=== PATIENT | male | born 1970 | race Caucasian/White ===

== ENCOUNTER 2019-03-31 07:32 | Outpatient (CLI) | payer BC, SELFPAY ==
--- NOTE | ~2019-03-31 | US_ITS ---
EXAMINATION: US abdomen complete EXAM DATE: 03/31/2019 08:47 INDICATION: Right lower quadrant pain. Bulging in right lower quadrant. TECHNIQUE: Multiple grayscale and Doppler images of the complete abdomen were obtained (by a technolo gist who performed the scan) and subsequently reviewed. There is no prior study for comparison. FINDINGS: The abdominal aorta is normal in caliber. Visualized portion IVC is patent. The pancreatic head a nd body are normal in appearance. The pancreatic tail is not visualized. The liver has normal echogenicity and contour. There are no focal liver lesions identified. There is no evidence of intrahepatic biliary duct dilation. Portal venous flow was seen in the hepatopedal , normal direction and has normal Doppler waveform. Common bile duct measures 4 mm, which is normal. The gallbladder wall is normal in thickness, with ex pected amount of distention. No sonographic evidence of pericholecystic fluid. There is no cholelit hiases. Technologist performing exam reports patient did not demonstrate sonographic Chavira's sign. Please note that this sign is less reliable in patients who have received pain medication. Right kidney: There is normal contour and echogenicity. It measures 10.9 x 6.1 x 5.8 centimeters. T here are 2 focal anechoic regions consistent with cysts within this cyst measuring up to 5 cm. Ther e is no hydronephrosis. Left kidney: There is normal contour and echogenicity. It measures 10.9 x 6.3 x 7.2 centimeters. Th ere is a cyst within this measuring up to 2 cm. There is no hydronephrosis. The spleen measures 13.7 centimeters which is upper limits of normal in size. IMPRESSION: 1. Renal cysts. Reviewed, dictated and finalized at location B. UNTANT ASSISTANT IMPRESSION: 1. Renal cysts.
--- NOTE | ~2019-03-31 | US_ITS ---
EXAMINATION: US scrotum doppler DATE: 03/31/2019 08:48 INDICATION: Right lower quadrant pain and hernia. TECHNIQUE: Testicular sonogram utilizing grayscale and Doppler COMPARISON: None. FINDINGS: The right testis measures 4.6 x 2.7 x 3.4 cm. The left testis measures 2.5 x 2.6 x 3.3 cm. Symmetric normal grayscale appearance to both testes. There is normal vascular flow to both testes. The right e pididymis is normal with normal vascular flow. The left epididymis is normal with normal vascular yosef w. There is no varicocele or hydrocele. Fat-containing right inguinal hernia. There is a 2.2 x 0.8 x 10.0 cm ovoid likely lymph node suggestion of a central fatty hilum within the herniated fat. IMPRESSION: 1. 2.2 x 0.8 x 10.0 cm likely lymph node within a fat-containing right inguinal hernia. Otherwise no rmal scrotal ultrasound. Reviewed, dictated and finalized at location A. ENT PLANT TREATER IMPRESSION: 1. 2.2 x 0.8 x 10.0 cm likely lymph node within a fat-containing right inguina l hernia. Otherwise normal scrotal ultrasound.
[2019-03-31 08:16] LABS: Eosinophils Absolute Auto 0.2 K/mm3 (0-0.3); Eosinophils Percent Auto 5.9 % (0-4.4); Hematocrit 43.2 % (42.0-52.0); Hemoglobin 14.6 g/dL (14.0-18.0); Immature Granulocyte Absolute 0.01 K/mm3 (0.00-0.031); Immature Granulocyte Percent A 0.2 % (0-0.5); Lymphocytes Absolute Auto 1.72 K/mm3 (0.9-3.2); Lymphocytes Percent Auto 42.6 % (18.3-44.2); Mean Corpuscular HGB Conc 33.8 g/dl (32-36); Mean Corpuscular Hemoglobin 28.9 pg (26-34); Mean Corpuscular Volume 85.4 fl (80-100); Mean Platelet Volume 10.6 fl (7.4-10.4); Monocytes Absolute Auto 0.5 K/mm3 (0.1-0.6); Monocytes Percent Auto 13.1 % (2.6-8.5); Neutrophils Absolute Auto 1.5 K/mm3 (1.3-6.7); Neutrophils Percent Auto 37.2 % (45.5-73.1); Platelet Count Result 178 k/mm3 (150-375); Red Blood Count 5.06 M/mm3 (4.6-6.20); Red Cell Distribution Width 12.9 % (11.5-14.5)
[2019-03-31 08:37] LABS: Alanine Aminotransferase 35 U/L (4-50); Albumin Level 4.6 g/dL (3.5-5.1); Alkaline Phosphatase 48 U/L (38-126); Aspartate Amino Transferase 33 U/L (17-59); Bilirubin,Total 0.4 mg/dL (0.2-1.3); Blood Urea Nitrogen 14 mg/dL (9-20); Calcium 9.5 mg/dL (8.4-10.2); Carbon Dioxide 25 mmol/L (22-30); Chloride 102 mmol/L (98-107); Cholesterol 227 mg/dL (0-200); Estimated Glomerular Filt Rate > 60; Glucose 95 mg/dL (75-110); HDL Direct 71 mg/dL; Potassium 4.3 mmol/L (3.4-5.0); Sodium 142 mmol/L (137-145); Triglycerides 147 mg/dL (<150)
[2019-03-31 08:55] LABS: LDL Cholesterol Direct 117 mg/dL
[2019-03-31 09:16] LABS: Prostate Specific Antigen 0.9 ng/mL (< OR = 4.0)
== END 2019-03-31 07:33 | disposition home or self-care (01) ==
PROVIDERS: PCP Internal Medicine; Visit Provider Nurse Practitioner
DX: K40.90 Unilateral inguinal hernia, without obstruction or gangrene, not specified as recurrent (principal); Z13.228 Encounter for screening for other metabolic disorders; Z12.5 Encounter for screening for malignant neoplasm of prostate; Z13.220 Encounter for screening for lipoid disorders; N28.1 Cyst of kidney, acquired
CPT/HCPCS: 36415; 76700; 76870; 80053; 80061; 84153; 85025; 93976

== ENCOUNTER 2019-04-06 01:14 | Day surgery (SDC) | payer BC, SELFPAY ==
[2019-04-03 15:31] VITALS: BMI 27.8
[2019-04-06] MEDS: LACTATED RINGERS 1,000 ML 150 ML IV CONT (10:56)
--- NOTE | 2019-04-06 11:04 | P.HP_ITS ---
History of Present Illness History of Present Illness Consent: Risks, benefits, and alternatives have been discussed and questions answered. Patient agrees to proceed with procedure. Chief complaint: Neoplasm Screening Narrative: Nikolas Pepe is a 48 year old W male referred for his 1st screening colonoscopy. Patient is asymptomatic and there is no family history of colon polyps or colon cancer. [facility] Social History Social History (Reviewed 04/05/19 @ 08:38 by Briana Schulte [facility]) Smoking status: Never smoker Alcohol intake: current Substance use: never Additional occupation/education comments: [place] Gender identity (if verbalized by the patient): Male Meds Home Medications and Allergies Home Medications Medication Instructions Recorded Confirmed Type fexofenadine 60 mg-pseudoephedrine 1 tablet PO Q12H PRN 03/22/19 04/03/19 History ER 120 mg tablet,ext.release,12 hr Allergies Allergy/AdvReac Type Severity Reaction Status Date / Time No Known Allergies Allergy Verified 04/05/19 08:37 Exam Const: Orientation/consciousness: patient oriented x3 Resp: Auscultation: clear to auscultation bilaterally Cardio: Rate: regular rate Rhythm: regular rhythm Heart sounds: no murmurs GI: GI Palp: Yes Soft to palpation, No Tenderness to palpation present (GI), Yes No hepatosplenomegaly present and No Palpable mass present Auscultation: normal bowel sounds Neuro: General: patient oriented x3 and no focal motor deficits Extrem: General: no pedal edema
[2019-04-06 11:12] VITALS: BP 113/80; PULSE 76; RESP 16; TEMP 36.2; O2SAT 100
--- NOTE | 2019-04-06 11:25 | WPDANESEPPF ---
Anes - Initial Pre Proc Eval Procedure: Operation Date: 04/06/19 11:30 Proposed Procedures p Screening Colonoscopy - Dk Romero MD Date/Time: 04/06/19 11:25 Surgeon: Dk Romero MD Pre Op Diagnosis: Neoplasm Screening Patient Data Age: 48 Gender: M Height: 5 ft 10 in Weight: 87.4 kg Last Vital Signs Temp 97.2 F L 04/06/19 11:12 Pulse 76 04/06/19 11:12 Resp 16 04/06/19 11:12 BP 113/80 04/06/19 11:12 Pulse Ox 100 04/06/19 11:12 Allergies Allergy/AdvReac Type Severity Reaction Status Date / Time No Known Allergies Allergy Verified 04/06/19 11:11 Home Medications Medication Instructions Recorded Confirmed Type fexofenadine 60 mg-pseudoephedrine 1 tablet PO Q12H PRN 03/22/19 04/03/19 History ER 120 mg tablet,ext.release,12 hr Patient hx anesthesia problems: none Family hx anesthesia problems: none [facility] Social History Social History Smoking status: Never smoker Alcohol intake: current Substance use: never Additional occupation/education comments: [employer] Gender identity (if verbalized by the patient): Male Anes - Eval Final PreProcedure Day of Procedure 04/06/19 11:25 Patient weight: normal Heart: regular rate and rhythm Lungs: clear to auscultation Airway: Mallampati scale class II Neurological: alert and oriented Last oral intake: >/= 8 hours ASA classification: II Emergent: no Anesthetic plan: proceed Anesthesia type and monitoring: general GIVS and standard monitoring Informed Consent: The patient's anesthetic plan and its attendant risks and benefits were discussed with the patient/family/POA. Questions were solicited and answers provided to the satisfaction of the patient/family/POA.
[2019-04-06 12:33] VITALS: BP 98/68; PULSE 66; RESP 20; O2SAT 99
[2019-04-06 12:43] VITALS: BP 119/74; PULSE 63; RESP 20; O2SAT 98
[2019-04-06 12:53] VITALS: BP 104/79; PULSE 66; RESP 21; O2SAT 100
[2019-04-06 13:03] VITALS: BP 116/89; PULSE 63; RESP 19; O2SAT 100
== END 2019-04-06 13:13 | disposition home or self-care (01) ==
PROVIDERS: PCP Internal Medicine; Visit Provider Internal Medicine Gastroenterology
PROC: 0DJD8ZZ Inspection of Lower Intestinal Tract, Via Natural or Artificial Opening Endoscopic (ICD-10-PCS; CPT 45378; principal; 2019-04-06 11:30)
DX: Z12.11 Encounter for screening for malignant neoplasm of colon (principal); D12.4 Benign neoplasm of descending colon; D12.5 Benign neoplasm of sigmoid colon; K62.1 Rectal polyp; K64.8 Other hemorrhoids; K64.4 Residual hemorrhoidal skin tags
CPT/HCPCS: 45385; 45380; 88305; J2001; J2704; J7120

== ENCOUNTER 2019-05-03 00:51 | Day surgery (SDC) | payer BC, SELFPAY ==
[2019-04-17 12:00] VITALS: BMI 29.0
[2019-05-03] VITALS (7 sets, daily range): BP systolic 116–142; BP diastolic 73–87; PULSE 56–64; RESP 12–16; TEMP 36.7; O2SAT 97–100
[2019-05-03] MEDS: LACTATED RINGERS 1,000 ML 30 ML IV CONT ×3 (10:55→15:06)
--- NOTE | 2019-05-03 10:59 | WPDANESEPPF ---
Anes - Initial Pre Proc Eval Procedure: Operation Date: 05/03/19 12:00 Proposed Procedures p Laparoscopic Right Inguinal Hernia Repair, With Mesh - Jacobo Zepeda MD s Excision Skin Lesion Right Side Shaft of Penis - Jacobo Zepeda MD Date/Time: 05/03/19 10:59 Surgeon: Jacobo Zepeda MD Pre Op Diagnosis: RT Inguinal Hernia, Skin Lesion RT shaft of Penis Patient Data Age: 48 Gender: M Height: 5 ft 9 in Weight: 89 kg Allergies Allergy/AdvReac Type Severity Reaction Status Date / Time No Known Allergies Allergy Verified 04/17/19 14:38 Home Medications Medication Instructions Recorded Confirmed Type fexofenadine 60 mg-pseudoephedrine 1 tablet PO Q12H PRN 03/22/19 05/03/19 History ER 120 mg tablet,ext.release,12 hr Patient hx anesthesia problems: none Family hx anesthesia problems: none PMFSH Past Medical History Medical History Allergies High cholesterol Surgical History Surgical History H/O hernia repair left, 20 years ago Family History Family History Mother Cancer Grandparent Acute myocardial infarction Social History Social History Smoking status: Never smoker Alcohol intake: current Substance use: never Additional occupation/education comments: [place] Gender identity (if verbalized by the patient): Male Anes - Eval Final PreProcedure Day of Procedure 05/03/19 10:59 Patient weight: overweight Heart: regular rate and rhythm Lungs: clear to auscultation Airway: Mallampati scale class II Neurological: alert and oriented Last oral intake: >/= 8 hours ASA classification: II Emergent: no Anesthetic plan: proceed Anesthesia type and monitoring: general ETT and standard monitoring Informed Consent: The patient's anesthetic plan and its attendant risks and benefits were discussed with the patient/family/POA. Questions were solicited and answers provided to the satisfaction of the patient/family/POA.
--- NOTE | 2019-05-03 12:10 | WPDHPUPDATE1 ---
History and Physical Update Update Date/Time: 05/03/19 12:10 History and Physical has been reviewed, including an updated exam of the patient. There are NO changes in the patient's condition. Risks, benefits, and alternatives of a laparoscopic right inguinal hernia repair with mesh have been discussed and questions answered. Patient agrees to proceed with procedure.
[2019-05-03] MEDS: ceFAZolin 2 GM/D5W 50 ML 2 GM/50 ML BAG IVPB (13:19)
[2019-05-03] MEDS: BUPIVACAINE/EPINEPHRINE 0.5% 30 ML VIAL 10 ML INFILTRATE (13:20)
--- NOTE | 2019-05-03 14:35 | PM.PROC ---
Procedure Note - Detailed Date of procedure: 05/03/19 Pre-op diagnosis: RT Inguinal Hernia, Skin Lesion RT shaft of Penis Post-op diagnosis: other (1. Indirect right inguinal hernia 2. Skin lesion shaft of penis ) Procedure performed: 1. Totally extraperitoneal laparoscopic inguinal hernia repair with mesh 2. Excision of skin lesion shaft of the penis. Description of procedure: After appropriate marking of the operative site prior to surgery, the patient was taken to the operating room. After induction of adequate general endotracheal anesthesia by [place] [facility] staff, the patient was carefully prepped and draped in a sterile fashion. A timeout was performed confirming the procedure and site of surgery on the RIGHT. Following this, local anesthetic was infiltrated into the umbilical area and a vertical incision was made just below the umbilicus. I carefully dissected down to the the anterior rectus sheath on the right and then made a 1 cm vertical slit in the fascia just off the midline. The rectus muscle was retracted to right and then just in front of the posterior rectus sheath, a dissecting balloon was passed onto the pubic bone. After placing slight pressure on the left groin area, this was insufflated with 40 pumps, while watching with the 0 degree laparoscope. It appeared that I was in the proper plane. Following this, the dissecting balloon was removed and replaced by an O shaped conforming balloon. Following this, the 0 degree laparoscope was used to carefully place two 5mm short trocars, just to the left of midline. One suprapubic and other one alf between the umbilicus and the pubic bone. Tedious dissection then occurred in the preperitoneal space exposing the Kam's ligament, the cord structures, the muscular tissue anteriorly, and the retroperitoneum. A discovered a very small amount of preperitoneal fat and a tiny direct inguinal hernia. There was also a fairly large indirect hernia sac that was dissected out. This was then able to be dissected back and we could visualize the posterior peritoneum. I then dissected up to the level of the umbilicus and it was ready for mesh placement. After carefully confirming all sites and that the mesh would cover the direct space, I carefully rolled the dry large 3DMax piece of polypropylene mesh and slid this through the 12 mm trocar at the umbilical level down into the preperitoneal space. This unfurled nicely and sat nicely against the right groin structures. It nicely covered all spaces and it went back nicely into the preperitoneal space along the anterior-superior iliac spine. I took a picture of it carefully, which showed that the mesh will cover the preperitoneal groin well, and had come down to the posterior border of the peritoneum. Once this was accomplished, I took the patient out of Trendelenburg position, rotated the patient back even, and then observed using a dissector through the higher 5 mm trocar to keep the mesh pushed down against the anterior and posterior abdominal wall retroperitoneally. The peritoneum was then allowed to fall on to the mesh and it held the mesh nicely in place. I carefully removed each of the 5 mm trocars under direct vision and compressed the CO2 gas out of the preperitoneal space, deflating the conforming balloon and removing it. I was happy with the way the peritoneum laid back on the mesh. I felt this will give the patient a good preperitoneal repair. Following this, I carefully removed the conforming balloon. An O Vicryl figure of eight suture was used to close the anterior rectus sheath on the [left/right] side of the umbilical incision and then local anesthetic was infiltrated into each of the incisions. Each site was closed with 4-0 undyed Vicryl and a running subcuticular closure of 4-0 undyed Vicryl was used on the skin of umbilicus. Surgical glue was used for dressing. Following this, the patient was taken to the recovery room in good condition. Estimated blood loss, a
--- NOTE | 2019-05-03 16:45 | SUR.PHASEII ---
1637; PT VOIDED X2 PRIOR TO DISCHARGE
== END 2019-05-03 16:37 | disposition home or self-care (01) ==
PROVIDERS: PCP Internal Medicine; Visit Provider Surgery
PROC: (CPT 49650; principal; 2019-05-03 12:00)
PROC: (CPT 49650; 2019-05-03 12:00)
DX: K40.90 Unilateral inguinal hernia, without obstruction or gangrene, not specified as recurrent (principal); L82.1 Other seborrheic keratosis; J30.2 Other seasonal allergic rhinitis
CPT/HCPCS: 49650; 11420; 88305; A9270; C1781; J0131; J0690; J1100; J1170; J2250; J2405; J2704; J2710; J3010; J7030; J7120

== ENCOUNTER → 2021-06-26 08:52 | Outpatient (CLI) | payer OTHER, SELFPAY ==
--- NOTE | ~2021-06-26 | XR_ITS ---
EXAMINATION: XR chest 2V 06/26/2021 09:06 INDICATION: Asbestos exposure. PROCEDURE: 2 view chest COMPARISON: No prior studies for comparison. FINDINGS: The lungs are clear. Mild cardiomegaly. There are no pleural effusions. There is no pneumo thorax suspected. No definite pleural calcifications are seen. Mild thoracic spondylosis. IMPRESSION: 1: NO ACUTE CARDIOPULMONARY DISEASE. Reviewed, dictated and finalized at location A.
== END ==
PROVIDERS: PCP Internal Medicine; Visit Provider Clinical Nurse Specialist
DX: Z77.090 Contact with and (suspected) exposure to asbestos (principal)
CPT/HCPCS: 71046

== ENCOUNTER 2021-07-03 08:10 | Outpatient (CLI) | payer OTHER, SELFPAY ==
--- NOTE | 2021-07-07 12:08 | WPDHOMESLEEP ---
Sleep Study - Home Unattended Date of Study: 07/03/21 Ordering Provider: KELI Sellers-Toni Interpreting Provider: Hermelinda Forman, DO Home Sleep Study Type: Watch PAT Height: 1.78 m Weight: 99.79 kg Body Mass Index: 31.5 Neck Circumference (inches): 17 Farber: 10 Reason for Sleep Study Witnessed apneas, snoring Sleep History The patient is a 50-year-old male with hyperlipidemia, seasonal allergies and GERD that had a sleep study ordered by his primary care for evaluation of sleep apnea. The patient is a [employer] by [employer]. The patient frequently awakens from sleep short of breath. He constantly awakens at night with heartburn, belching or cough. He constantly snores loud enough that others complain. He frequently has trouble sleeping when he has a cold. He frequently wakes up gasping for air throughout the night. He frequently has breathing problems at night observed by himself or others. He constantly sweats excessively at night. He occasionally has heart palpitations or irregular heartbeats during the night. He rarely falls asleep during the day. He rarely falls asleep while driving. He rarely experiences loss of muscle tone when extremely emotional. He rarely has trouble at school or work due to sleepiness. He constantly feels unable to move while waking up or falling asleep. He frequently experiences vivid dreamlike scenes upon awakening or falling asleep. He rarely feels afraid of going to sleep. He occasionally has nightmares but rib rarely remembers his dreams. He occasionally has thoughts racing through his mind. He rarely feels sad or depressed. He occasionally has anxiety. He frequently has muscular tension. He frequently notices parts of his body jerk. He frequently kicks during the night. He occasionally has crawling and aching feelings in his legs and frequently has leg pain during the night. He rarely grinds his teeth during sleep and rarely awakens with jaw pain in the morning. He is occasionally bothered by pain during the day and occasionally awakened by pain during the night. He frequently wakes up feeling stiff in the morning. He frequently wakes up with sore achy muscles. He frequently wakes up with pain in the neck, spine and other joints. He goes to bed at 9:00 p.m. on both weekdays and weekends. He can fall asleep within 5 minutes. He wakes up 1-2 times throughout the night. When he awakens, he will sit in bed and talk or use the restroom. It takes him 30-60 minutes to fall back asleep. He wakes up at 6:15 a.m. on weekdays and 6:30 a.m. on the weekends. He typically gets 8-10 hours of sleep per night. He will stay in bed for 5 minutes after waking up in the morning. He currently lives with his . He does not consume any caffeinated beverages within 2 hours of bedtime. He does not engage in physical exercise before bedtime. He denies reading and watching television before falling asleep. He denies taking naps in the afternoon or the evening. He will drink 2 cups of caffeinated beverage per day. He will drink 3-5 alcoholic beverages per day. He denies tobacco and recreational drug use. [facility] Past Medical History Medical History Allergies High cholesterol Surgical History Surgical History H/O hernia repair left, 20 years ago History of inguinal hernia repair right inguinal hernia, skin lesion right shaft of penis 05/03/19 Family History Family History Mother Cancer Grandparent Acute myocardial infarction Social History Social History Smoking status: Never smoker Alcohol intake: current Drinks per week: 12 Alcohol use details: 2 drinks daily. Substance use: never Additional occupation/education comments: [employer] Gender mariana
[2021-07-07 12:22] VITALS: BMI 31.5
== END 2021-07-04 14:20 | disposition home or self-care (01) ==
LOC: ANHCSM 08:11
PROVIDERS: PCP Internal Medicine; Visit Provider Clinical Nurse Specialist
DX: G47.33 Obstructive sleep apnea (adult) (pediatric) (principal)
CPT/HCPCS: 95800

== ENCOUNTER 2021-07-22 15:09 | Outpatient (CLI) | payer OTHER, SELFPAY ==
--- NOTE | ~2021-07-22 | CT_ITS ---
EXAMINATION: [facility] DATE: 07/22/2021 15:28 INDICATION: Asbestos exposure. TECHNIQUE: Computed tomography (CT) of the chest was performed without intravenous contrast. The dose -length product was 404.13 mGy-cm. Automated exposure control and iterative reconstruction technique were employed. COMPARISON: No prior studies for comparison. FINDINGS: No focal airspace consolidation. No endobronchial lesions. No pneumothorax. No thoracic lym phadenopathy. Heart size normal. No significant pleural or pericardial effusion. There are bilateral renal cysts. Fatty infiltration of the liver. There are small 2 mm upper lobe nodules. There are a fe w small scattered calcified granulomas of the lungs. No endobronchial lesions. No focal pleural thick ening or pleural calcification. Mild thoracic spondylosis with accentuated kyphosis. No focal lytic o r blastic lesions. IMPRESSION: 1. Small upper lobe nodules measuring 2 mm or less, likely benign. Consider follow-up low dose [facility] in 12 months. Reviewed, dictated and finalized at location B. IMPRESSION: 1. Small upper lobe nodules measuring 2 mm or less, likely benign. Consider fol low-up low dose CT chest in 12 months.
== END 2021-07-22 15:10 | disposition home or self-care (01) ==
PROVIDERS: PCP Internal Medicine; Visit Provider Nurse Practitioner
DX: R91.8 Other nonspecific abnormal finding of lung field (principal); Z77.090 Contact with and (suspected) exposure to asbestos
CPT/HCPCS: 71250

== ENCOUNTER → 2022-04-22 12:10 | Outpatient (CLI) | payer OTHER, SELFPAY ==
--- NOTE | ~2022-04-22 | XR_ITS ---
EXAMINATION: XR chest 2V Exam Date/Time: 04/22/2022 12:14 PARA OPERATOR HISTORY: R05.9 - Cough, unspecified Comparison: 06/26/2021. RESULT: Lines, tubes, and devices: None. Lungs and pleura: Clear. Cardiomediastinal silhouette: Stable. Other: No acute osseous or upper abdominal finding. IMPRESSION: No acute cardiopulmonary process. Reviewed, dictated and finalized at location K. OPERATOR
== END ==
PROVIDERS: PCP Internal Medicine; Visit Provider Nurse Practitioner
DX: R05.9 Cough, unspecified (principal)
CPT/HCPCS: 71046

== ENCOUNTER 2022-06-25 14:32 | Outpatient (CLI) | payer OTHER, SELFPAY ==
--- NOTE | 2022-06-25 14:47 | ECHO_ITS ---
Patient Info Name: Nikolas Pepe Age: 51 years : 1970 Gender: Male Ht: 71 in Wt: 215 lbs BSA: 2.23 m2 HR: 75 bpm BP: 138 / 92 mmHg Technical Quality: Good Exam Date: 06/25/2022 3:21 PM Exam Location: [facility] Patient Status: Outpatient Admit Date: 06/25/2022 Staff Ordering Physician: Noemi Andrade NP Track Walker: Matilda Morris RDCS Attending Provider: Phillip Barnett DO Referring Physician: Lupe FRANKEL; Exam Type: CA echo doppler color flow Study Info Indications R55 - Syncope and collapse Complete two-dimensional, color flow and Doppler transthoracic echocardiogram is performed. Summary 1. Complete two-dimensional, color flow and Doppler transthoracic echocardiogram is performed. 2. Left ventricular chamber dimension is normal. 3. Left ventricular systolic function is normal, estimated at 60-65%. 4. The left ventricular diastolic function is normal. 5. E/e' 9 is minimally elevated. 6. No pulmonary hypertension, estimated pulmonary arterial systolic pressure is 37 mmHg. Left Ventricle E/e' 9 is minimally elevated. Left ventricular chamber dimension is normal. Left ventricular systolic function is normal, estimated at 60-65%. The left ventricular diastolic function is normal. Right Ventricle Right ventricular chamber dimension is normal. Right ventricular systolic function is normal. Left Atria Left atrial chamber dimension is normal. Right Atria Right atrial chamber dimension is normal. Aortic Valve The aortic valve is trileaflet. There is no aortic valve stenosis. There is no aortic valve regurgitation. Pulmonic Valve There is no pulmonic regurgitation. Mitral Valve There is no mitral valve stenosis. There is no mitral valve regurgitation. Tricuspid Valve There is no tricuspid valve regurgitation. No pulmonary hypertension, estimated pulmonary arterial systolic pressure is 37 mmHg. Pericardium/Pleural There is no pericardial effusion. Inferior Vena Cava Normal inferior vena cava with >50% collapse upon inspiration consistent with normal right atrial pressure, 5 mmHg. Aorta The aortic root size at the sinus of Valsalva is normal. Left Ventricular Outflow Tract Name Value Normal LVOT 2D LVOT Diameter 2.1 cm LVOT Doppler LVOT Peak Gradient 5 mmHg LVOT Mean Gradient 3 mmHg LVOT VTI 23 cm LVOT VTI/AV VTI Ratio 0.9 LVOT Stroke Volume 80 ml LVOT CO 18.3 l/min LVOT CI 8.2 l/min/m2 Pulmonic Valve Name Value Normal RVOT Doppler RVOT Peak Gradient 1 mmHg PV Doppler PV Peak Gradient 3 mmHg Mitral Valve
== END 2022-06-25 14:33 | disposition home or self-care (01) ==
LOC: ANHCARD 14:33
PROVIDERS: PCP Internal Medicine; Visit Provider Internal Medicine
DX: R55 Syncope and collapse (principal)
CPT/HCPCS: 93306

== ENCOUNTER 2024-03-24 10:16 | Outpatient (CLI) | payer OTHER, SELFPAY ==
--- NOTE | ~2024-03-24 | US_ITS ---
EXAM: ABDOMEN ULTRASOUND HISTORY: R74.8 - Abnormal levels of other serum enzymes COMPARISON: 03/31/2019 FINDINGS: LIVER: The liver is increased in echogenicity and size measuring 20 cm in longitudinal dimension. The main portal vein is patent demonstrating hepatopedal flow. The surface contour of the liver is smooth. GALLBLADDER: No stones are identified within the gallbladder, which is otherwise unremarkable. No gallbladder wall thickening or pericholecystic fluid. BILE DUCTS: Common bile duct measures 5.2mm. PANCREAS: Limited evaluation of the pancreas secondary to overlying bowel gas RIGHT KIDNEY: 12.8 cm. In length. No hydronephrosis or bulky renal calculi. Multiple anechoic avascular structures within the right kidney, consistent with simple cysts. VASCULATURE : The abdominal aorta is nonaneurysmal. The IVC is patent. IMPRESSION: Enlargement of a fatty liver Multiple simple cysts within the right kidney. Reviewed, dictated and finalized at location A. T REQUEST RUNNER
--- NOTE | ~2024-03-24 | CT_ITS ---
EXAMINATION:CT diagnostic chest w con DATE: 03/24/2024 10:46 INDICATION: Solitary pulmonary nodule. TECHNIQUE: Computed tomography (CT) of the chest was performed with 75 mL Omnipaque 350 intravenous c ontrast. Automated exposure control and iterative reconstruction technique were employed. The dose-le ngth product (DLP) was 576.79 mGy-cm. COMPARISON: Chest CT 07/22/2021 FINDINGS: There is mild scarring in paraspinal right lower lobe. There is a 3 mm nodule in right midd le lobe. There are a few scattered 2 mm nodules in the lungs. There is mild atelectasis in left upper lobe. No pleural effusion. Cardiomegaly is noted. There are calcifications in the aortic valve. Ther e are coronary artery calcifications. No pericardial effusion. There is mild bilateral gynecomastia. There is diffuse hepatic steatosis. There are cysts in right kidney measuring up to 5.4 cm. There is mild thoracic spondylosis. IMPRESSION: 1. Small pulmonary nodules, likely benign. Reviewed, dictated and finalized at location A. E LEVER OPERATOR
== END 2024-03-24 10:17 | disposition home or self-care (01) ==
LOC: MICIMG 10:17
PROVIDERS: PCP Internal Medicine; Visit Provider Clinical Nurse Specialist
DX: R91.8 Other nonspecific abnormal finding of lung field (principal); K76.0 Fatty (change of) liver, not elsewhere classified; N28.1 Cyst of kidney, acquired; F10.10 Alcohol abuse, uncomplicated; Z77.090 Contact with and (suspected) exposure to asbestos
CPT/HCPCS: 71260; 76705; Q9967

== ENCOUNTER 2024-07-28 01:00 | Day surgery (SDC) | payer OTHER, SELFPAY ==
[2024-07-24 08:46] VITALS: BMI 28.7
--- OUTSIDE RECORDS SUMMARY | 2024-07-28 01:02 | XMS_ITS | Clinical Summary ---
Author Organization [facility] Address [address] 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 This disclosure is being madepursuant to the Care Everywhere program and may not contain all information available regarding this patient. 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 Gender Identity Not on file Sexual Orientation Not on file Last Filed Vital Signs Vital Sign Reading Time Taken Comments Blood Pressure 130/86 01/10/2016 2:57 PM PROTOTYPE TECHNICIAN Pulse 95 01/10/2016 2:57 PM PROTOTYPE TECHNICIAN Temperature 36.9 C (98.5 F) 01/10/2016 2:57 PM PROTOTYPE TECHNICIAN Respiratory Rate 18 01/10/2016 2:57 PM PROTOTYPE TECHNICIAN Oxygen Saturation - - Inhaled Oxygen Concentration - - Weight 99.8 kg (220 lb) 01/10/2016 2:57 PM PROTOTYPE TECHNICIAN Height 177.8 cm (5' 10) 01/10/2016 2:57 PM PROTOTYPE TECHNICIAN Body Mass Index 31.57 01/10/2016 2:57 PM PROTOTYPE TECHNICIAN Plan of Treatment Upcoming Encounters Date Type Department Care Team (Late st Contact Info) Description 08/22/2024 1:30 PM CDT Office Visit [facility] [address] [place] [address] 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, 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 [address] [facility] [facility] [place] [address] Health Maintenance Due Date Last Done Comments COLOGUARD (AGES 45-75) - COL ON CA SCREENING 1968 COLON MONITORING 1968 COLONOSCOPY - COLON CA SCREENING 1968 CT COLONOGRAPHY - COLON CA SCREENING 1968 Colorectal Cancer Screening 1968 FIT - COLON CA SCREENING 1968 FLEX SIG - COLON CA SCREENING 1968 LIPID TESTING 1968 HIV SCREENING 12/16/1983 HEPATITIS C SCREENING 12/11/1986 DTAP/TDAP/TD VACCINES (1 - Tdap) 12/16/1987 HEPATITIS B VACCINE (1 of 3 - 19+ 3-dose series) 12/16/1987 PNEUMOCOCCAL VACCINE 50+ (1 of 1 - PCV) 2018 ZOSTER VACCINE (1 of 2) 2018 COVID-19 VACCINE (1 - 2023-2 5 season) 2023 DEPRESSION SCREENING 02/16/2024 INFLUENZA VACCINE (Season Ended) 2024 HIB VACCINE Aged Out No longer eligi ble based on patient's age to complete this topic HPV VACCINE Aged Out No longer eligi ble based on patient's age to complete this topic MENINGOCOCCAL (Group B) VACC INE SHARED DECISION-MAKING Aged Out No longer eligibl e based on patient's age to complete this topic MENINGOCOCCAL GROUPS A/C/Y/W VACCINE Aged Out No longer eligible b ased on patient's age to complete this topic Insurance [facility] * Guarantor: CIRILO PEPE Account Type Relation to Patient Date of Phone Billing Address Personal/Family 1970 [address] [place] [address]
[2024-07-28 07:23] VITALS: BP 135/80; PULSE 62; RESP 18; TEMP 36.2; O2SAT 99
[2024-07-28] MEDS: LACTATED RINGERS 1,000 ML 150 ML IV CONT (07:38)
--- NOTE | 2024-07-28 07:52 | P.PNAN_ITS ---
Anes - Initial Pre Proc Eval Procedure: Operation Date: 07/28/24 09:30 Proposed Procedures p Screening Colonoscopy - Remi Hermosillo MD Date/Time: 07/28/24 07:52 Surgeon: Remi Hermosillo MD Pre Op Diagnosis: hx of colon polyps Patient Data Age: 53 Gender: M Height: 1.78 m Weight: 95.7 kg Last Vital Signs Temp 36.2 C L 07/28/24 07:23 Pulse 62 07/28/24 07:23 Resp 18 07/28/24 07:23 BP 135/80 07/28/24 07:23 Pulse Ox 99 07/28/24 07:23 O2 Del Method Room Air 07/28/24 07:23 Allergies Allergy/AdvReac Type Severity Reaction Status Date / Time No Known Allergies Allergy Verified 07/28/24 07:20 Home Medications ?Medication ?Instructions ?Recorded ?Confirmed ?Type tadalafil 10 mg tablet 10 mg PO .q36 PRN sexual activity 06/05/22 07/24/24 Rx #20 tabs Patient hx anesthesia problems: none Family hx anesthesia problems: none Results Review: All pre-operative results and documents have been reviewed as part of the pre- operative evaluation. [facility] Past Medical History Medical History Acute sinusitis High cholesterol Allergies Surgical History Surgical History History of inguinal hernia repair right inguinal hernia, skin lesion right shaft of penis 05/03/19 H/O hernia repair left, 20 years ago Family History Family History Mother Cancer Grandparent Acute myocardial infarction Social History Social History Social History: Caffeine-coffee Smoking status: Never smoker Alcohol intake: current Drinks per week: 12 Alcohol use details: 2 drinks daily. Substance use: never Substance use type: does not use Living arrangements: alone Occupation/Education: occupation Additional occupation/education comments: [place] Gender identity (if verbalized by the patient): Male Anes - Eval Final PreProcedure Day of Procedure 07/28/24 07:52 Patient weight: obese Heart: regular rate and rhythm Lungs: clear to auscultation Airway: Mallampati scale class II Neurological: alert and oriented Last oral intake: >/= 8 hours ASA classification: III Emergent: no Anesthetic plan: proceed Anesthesia type and monitoring: general GIVS and standard monitoring Results Review: All pre-operative results and documents have been reviewed as part of the pre- operative evaluation. Informed Consent: The patient's anesthetic plan and its attendant risks and benefits were discussed with the patient/family/POA. Questions were solicited and answers provided to the satisfaction of the patient/family/POA.
--- NOTE | 2024-07-28 08:28 | P.HP_ITS ---
H&P: HPI History of Present Illness Date/Time: 07/28/24 08:28 Chief Complaint: History of colon polyps Narrative: The patient has a history of colonic polyps, the last colonoscopy was 5 years ago. Review of Systems Review of Systems: All systems reviewed & are unremarkable except as noted in HPI and below PMFSH Past Medical History Medical History Acute sinusitis High cholesterol Allergies Surgical History Surgical History History of inguinal hernia repair right inguinal hernia, skin lesion right shaft of penis 05/03/19 H/O hernia repair left, 20 years ago Family History Family History Mother Cancer Grandparent Acute myocardial infarction Social History Social History Social History: Caffeine-coffee Smoking status: Never smoker Alcohol intake: current Drinks per week: 12 Alcohol use details: 2 drinks daily. Substance use: never Substance use type: does not use Living arrangements: alone Occupation/Education: occupation Additional occupation/education comments: [place] Gender identity (if verbalized by the patient): Male Meds Home Medications and Allergies Home Medications ?Medication ?Instructions ?Recorded ?Confirmed ?Type tadalafil 10 mg tablet 10 mg PO .q36 PRN sexual activity 06/05/22 07/24/24 Rx #20 tabs Allergies Allergy/AdvReac Type Severity Reaction Status Date / Time No Known Allergies Allergy Verified 07/28/24 07:20 Vital Signs Vital Signs - 24 hr 07/28/24 07:23 Temperature 97.1 F L Pulse Rate 62 Respiratory Rate 18 Blood Pressure 135/80 Pulse Oximetry 99 Oxygen Delivery Room Air Exam Const: General: cooperative and healthy appearing Resp: Effort & Inspection: normal respiratory effort and able to speak in complete sentences Auscultation: clear to auscultation bilaterally Cardio: Rate: regular rate Rhythm: regular rhythm GI: Inspection: normal to inspection GI Palp: No No hepatosplenomegaly pr esent Auscultation: normal bowel sounds Rectal Exam: deferred Skin: General skin exam: normal color Psych: Appearance: grossly normal Mental Status: mental status grossly normal Assessment and Plan Assessment and plan (1) History of colonic polyps: Code(s): Z86.0100 - Personal history of colon polyps, unspecified Status: Acute Assessment and Plan: The patient is deemed a good candidate for the procedure. Consent signed. Will proceed.
--- NOTE | 2024-07-28 08:54 | S_PTH ---
PATIENT: Nikolas Pepe LOC: [facility] U#:[id number] AGE/SX: 53/M ROOM: RE07/28/[address]: Remi Hermosillo MD : 1970 BED: DIS: 07/28/2024 SPEC #: [id number] RECD: 07/28/24 10:49 STATUS: MELISSA REBrea #: [id number] THUY: 07/28/24 08:[address]: Remi Hermosillo DEPT: [facility] Surgical RECD BY: Sandra Aparciio ENTERED: 07/28/24 10:49 SP TYPE: Surgical OTHR DR: Phillip Barnett DO Tissues: A - Rectal Polyp Procedures: Hematoxylin and Eosin Stain Gross and Microscopic Level 4
[2024-07-28 08:56] VITALS: BP 108/73; PULSE 60; RESP 20; O2SAT 98
[2024-07-28 09:06] VITALS: BP 114/80; PULSE 58; RESP 20; O2SAT 98
[2024-07-28 09:16] VITALS: BP 113/93; PULSE 56; RESP 20; O2SAT 100
== END 2024-07-28 09:25 | disposition home or self-care (01) ==
PROVIDERS: PCP Internal Medicine; Referring Provider Clinical Nurse Specialist; Visit Provider Internal Medicine Gastroenterology
PROC: 0DJD8ZZ Inspection of Lower Intestinal Tract, Via Natural or Artificial Opening Endoscopic (ICD-10-PCS; CPT 45378; principal; 2024-07-28 09:30)
DX: Z12.11 Encounter for screening for malignant neoplasm of colon (principal); K62.1 Rectal polyp; E66.9 Obesity, unspecified; Z68.30 Body mass index [BMI] 30.0-30.9, adult
CPT/HCPCS: 45385; 88305; J2003; J2704; J7120

== ENCOUNTER 2025-02-14 10:17 | Outpatient (CLI) | payer OTHER, SELFPAY ==
--- NOTE | ~2025-02-14 | XR_ITS ---
EXAMINATION: XR chest 2V 02/14/2025 10:30 INDICATION: Cough PROCEDURE: 2 view chest COMPARISON: 04/22/2022 FINDINGS: The lungs are clear. The cardiomediastinal silhouette is within normal limits. There are no pleural effusions. There is no pneumothorax suspected. IMPRESSION: 1: NO ACUTE CARDIOPULMONARY DISEASE. Reviewed, dictated and finalized at location O. [employer] WORK[employer]
== END 2025-02-14 10:18 | disposition home or self-care (01) ==
LOC: MICIMG 10:19
PROVIDERS: PCP Internal Medicine; Visit Provider Nurse Practitioner
DX: R05.9 Cough, unspecified (principal)
CPT/HCPCS: 71046